=== PATIENT | female | born 1985 | race Hispanic/Latino ===

== ENCOUNTER 2018-09-27 17:39 | Emergency (ER) | payer OTHER ==
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
[2018-09-27 21:32] VITALS: BP 101/61
--- NOTE | 2018-09-27 21:43 | XRay Report ---
PROCEDURE: XR SPINE CERVICAL 2-3V TECHNIQUE 4 views of the cervical spine were obtained HISTORY: neck pain COMPARISONS: FINDINGS: There is anterior cervical fusion C5-C6 with disc spacer present. Vertebral bodies demonstrate normal height and alignment. The facet joints demonstrate normal alignment. Spinous processes are intact. IMPRESSION: Status post anterior fusion at C5-C6 No acute findings. This document is electronically signed by Natalio Bonilla MD., September 27 2018 09:41:43 PM ET
== END 2018-09-27 22:25 | disposition home or self-care (01) ==
LOC: ED 17:39
DX: M54.2 Cervicalgia (principal); F17.200 Nicotine dependence, unspecified, uncomplicated; V47.6XXA Car passenger injured in collision with fixed or stationary object in traffic accident, initial encounter; Y93.89 Activity, other specified; Y92.488 Other paved roadways as the place of occurrence of the external cause; Y99.8 Other external cause status
CPT/HCPCS: 72040; 99283